=== PATIENT | male | born 1975 | race Two or more races ===

== ENCOUNTER 2022-05-22 12:01 | Outpatient (CLI) | payer OTHER | END 2022-05-22 12:10 | disposition home or self-care (01) | LOC: LAB 12:01 | PROVIDERS: ATTEND Surgery | DX: C18.6 Malignant neoplasm of descending colon (principal); C18.4 Malignant neoplasm of transverse colon; R59.0 Localized enlarged lymph nodes; K92.1 Melena; K59.09 Other constipation; I10 Essential (primary) hypertension ==

== ENCOUNTER 2022-05-24 08:45 | Inpatient (IN) | payer OTHER ==
[~2022-05-24] VITALS: Ht 167.6 cm; Wt 79.4 kg
[2022-05-24] MEDS ORDERED: LIPITOR20 MG PO (10:23)
[2022-05-28] MEDS ORDERED: CETIRIZINE HCL10 MG (13:55)
[2022-05-28] MEDS ORDERED: ATORVASTATIN CA20 MG (13:55)
[2022-05-28] MEDS ORDERED: HYDROXYZINE PAM50 MG (13:56)
[2022-05-28] MEDS ORDERED: MELOXICAM15 MG (13:56)
[2022-06-01] MEDS ORDERED: INTEGRA F CAPS1 EACH PO (10:53)
[2022-06-01] MEDS ORDERED: ULTRACET PO (10:53)
== END 2022-06-01 13:17 | disposition home or self-care (01) | DRG 330 ==
LOC: EDUNIT# 08:45 → O/R 05-28 06:44 → SURH 05-28 06:44
PROVIDERS: ADMIT Surgery; ATTEND Surgery
PROC: 07BB4ZZ Excision of Mesenteric Lymphatic, Percutaneous Endoscopic Approach (ICD-10-PCS; 2022-05-28)
PROC: 0DBU4ZZ Excision of Omentum, Percutaneous Endoscopic Approach (ICD-10-PCS; 2022-05-28)
PROC: 0DJD8ZZ Inspection of Lower Intestinal Tract, Via Natural or Artificial Opening Endoscopic (ICD-10-PCS; 2022-05-28)
PROC: 0DTG4ZZ Resection of Left Large Intestine, Percutaneous Endoscopic Approach (ICD-10-PCS; principal; 2022-05-28 10:30)
PROC: 30233N1 Transfusion of Nonautologous Red Blood Cells into Peripheral Vein, Percutaneous Approach (ICD-10-PCS; 2022-05-29)
DX: C18.6 Malignant neoplasm of descending colon (principal); D62 Acute posthemorrhagic anemia; Z20.822 Contact with and (suspected) exposure to COVID-19